=== PATIENT | female | born 1960 | race African-American/Black ===

== ENCOUNTER 2020-06-04 16:03 | Emergency (ER) | payer MEDICAID, OTHER ==
[2020-06-04] MEDS ORDERED: HYDROCODONE/ACETAMINOPHEN 5-325 MG TABLET PO ONE (16:36)
--- NOTE | 2020-06-04 16:37 | ER Document Report ---
ED Medical Screen (RME) - General Chief Complaint: Abdominal Pain Stated Complaint: LOWER RIGHT ABDOMEN PAIN, LOW BACK PAIN Time Seen by Provider: 06/04/20 16:29 Primary Care Provider: EDWARD JEFFREY MD [Primary Care Provider] - Follow up as needed Notes: Patient presents complaining of right flank pain that radiates around to right side of abdomen for the past 3 weeks. Patient reports urinary frequency. Patient denies any fever. Patient denies any nausea vomiting or diarrhea. Patient does have a history of previous appendectomy I have greeted and performed a rapid initial assessment of this patient. A comprehensive ED assessment and evaluation of the patient, analysis of test results and completion of the medical decision making process will be conducted by additional ED providers. - Related Data Allergies/Adverse Reactions: Penicillins Allergy (Verified 06/04/20 16:25) Sulfa (Sulfonamide Antibiotics) Allergy (Verified 06/04/20 16:25) Physical Exam - Vital signs Vitals: Temp Pulse Resp BP Pulse Ox 99.0 F 87 18 138/88 H 99 06/04/20 16:19 06/04/20 16:19 06/04/20 16:19 06/04/20 16:19 06/04/20 16:19 - Abdominal Tenderness: Tender - Right side of abdomen, exam limited with patient in chair Course - Vital Signs Vital signs: Temp Pulse Resp BP Pulse Ox 99.0 F 87 18 138/88 H 99 06/04/20 16:19 06/04/20 16:19 06/04/20 16:19 06/04/20 16:19 06/04/20 16:19 Doctor's Discharge - Discharge Referrals: EDWRAD JEFFREY MD [Primary Care Provider] - Follow up as needed
--- NOTE | 2020-06-04 17:27 | RADIOLOGY REPORT (SQ) ---
EXAM DESCRIPTION: CT ABD/PELVIS NO ORAL OR IV IMAGES COMPLETED DATE/TIME: 06/04/2020 3:53 pm REASON FOR STUDY: R flank, RLQ pain. Prior appendectomy. History of kidney stones. COMPARISON: None. TECHNIQUE: CT scan of the abdomen and pelvis performed without intravenous or oral contrast. Images reviewed with lung, soft tissue, and bone windows. Reconstructed coronal and sagittal MPR images revi ewed. All images stored on PACS. All CT scanners at this facility use dose modulation, iterative reconstruction, and/or weight based d osing when appropriate to reduce radiation dose to as low as reasonably achievable (ALARA). [facility]: Dose Right [facility]: CareDose [facility]: Dose Right [facility]: Teradose 4D [facility]: [employer] RADIATION DOSE: CT Rad equipment meets quality standard of care and radiation dose reduction techniq ues were employed. CTDIvol: 8.8 mGy. DLP: 442 mGy-cm.mGy. LIMITATIONS: None. FINDINGS: LOWER CHEST: No significant findings. No nodules or infiltrates. NON-CONTRASTED LIVER, SPLEEN, ADRENALS: Evaluation limited by lack of IV contrast. No identified sign ificant masses. PANCREAS: No masses. No peripancreatic inflammatory changes. GALLBLADDER: No identified stones by CT criteria. No inflammatory changes to suggest cholecystitis. RIGHT KIDNEY AND URETER: No suspicious masses. Assessment limited by lack of IV contrast. No signif icant calcifications. No hydronephrosis or hydroureter. LEFT KIDNEY AND URETER: No suspicious masses. Assessment limited by lack of IV contrast. No signifi cant calcifications. No hydronephrosis or hydroureter. AORTA AND RETROPERITONEUM: No aneurysm. No retroperitoneal masses or adenopathy. BOWEL AND PERITONEAL CAVITY: No obvious masses or inflammatory changes. No free fluid. APPENDIX: Normal. PELVIS, BLADDER, AND ABDOMINAL WALL:No abnormal masses. No free fluid. Bladder normal. BONES: No significant findings. OTHER: No other significant finding. IMPRESSION: NO SIGNIFICANT OR ACUTE PROCESS IN THE ABDOMEN OR PELVIS. No renal or ureteral calculi or hydronephrosis. Status post appendectomy. COMMENT: Quality ID # [id number]: Final reports with documentation of one or more dose reduction techniques (e.g., Automated exposure control, adjustment of the mA and/or kV according to patient size, use of iterative reconstruction technique) TECHNICAL DOCUMENTATION: JOB ID: [id number] 2010 [employer]- All Rights Reserved Reading location - IP/workstation name: [id number]
[2020-06-04 17:38] LABS: ALBUMIN 4.4 g/dL (3.5-5.0); ALKALINE PHOSPHATASE 80 U/L (38-126); ANION GAP 6 (5-19); ASPARTATE AMINO TRANSFERASE 22 U/L (14-36); BILIRUBIN,DIRECT 0.1 mg/dL (0.0-0.4); BILIRUBIN,TOTAL 0.3 mg/dL (0.2-1.3); BLOOD UREA NITROGEN 12 mg/dL (7-20); CALCIUM 9.8 mg/dL (8.4-10.2); CARBON DIOXIDE 30 mmol/L (22-30); CHLORIDE 104 mmol/L (98-107); GLUCOSE 93 mg/dL (75-110); POTASSIUM 4.3 mmol/L (3.6-5.0); TOTAL PROTEIN 7.2 g/dL (6.3-8.2)
[2020-06-04 17:41] LABS: HEMATOCRIT 38.3 % (36.0-47.0); HEMOGLOBIN 12.7 g/dL (12.0-15.5); MEAN CORPUSCULAR HEMOGLOBIN 27.2 pg (27.0-33.4); MEAN CORPUSCULAR HGB CONC 33.2 g/dL (32.0-36.0); MEAN CORPUSCULAR VOLUME 82 fl (80-97); PLATELET COUNT 264 10^3/uL (150-450); RED BLOOD COUNT 4.67 10^6/uL (3.72-5.28); WHITE BLOOD COUNT 8.4 10^3/uL (4.0-10.5)
[2020-06-04 17:56] LABS: ABSOLUTE MONOCYTES # (MANUAL) 0.2 10^3/uL (0.1-1.4); ANISOCYTOSIS SLIGHT; BASOPHILS % (MANUAL) 0 % (0-2); EOSINOPHILS % (MANUAL) 3 % (0-6); LYMPHOCYTES % (MANUAL) 48 % (13-45); MONOCYTES % (MANUAL) 2 % (3-13); POIKILOCYTOSIS SLIGHT; SEGMENTED NEUTROPHILS % (MAN) 36 % (42-78); TOTAL CELLS COUNTED 100
[2020-06-04 17:57] LABS: PLATELET COMMENT ADEQUATE; TARGET CELLS SLIGHT
[2020-06-04 18:33] LABS: APPEARANCE,URINE SLIGHTLY-CLOUDY; BILIRUBIN,URINE NEGATIVE (NEGATIVE); COLOR,URINE YELLOW; GLUCOSE, URINE NEGATIVE (NEGATIVE); KETONES,URINE NEGATIVE (NEGATIVE); LEUKOCYTE ESTERASE,URINE NEGATIVE (NEGATIVE); NITRITE,URINE NEGATIVE (NEGATIVE); PROTEIN,URINE NEGATIVE (NEGATIVE); UROBILINOGEN,URINE NEGATIVE mg/dL (<2.0)
[2020-06-04] MEDS ORDERED: KETOROLAC TROMETHAMINE INJ/PF 30 MG/1 ML SDV IV ONE (21:01)
[2020-06-04 21:14] LABS: APPEARANCE,URINE CLEAR; BILIRUBIN,URINE NEGATIVE (NEGATIVE); COLOR,URINE YELLOW; GLUCOSE, URINE NEGATIVE (NEGATIVE); KETONES,URINE NEGATIVE (NEGATIVE); PROTEIN,URINE NEGATIVE (NEGATIVE); URINE SPECIFIC GRAVITY 1.015; UROBILINOGEN,URINE NEGATIVE mg/dL (<2.0)
--- NOTE | 2020-06-04 22:00 | ER Document Report ---
Entered by MARGOTH SIMPSON SCRIBE 06/04/202101 Acting as scribe for:INDIANA REYES IV, MD ED GI/ - General Chief Complaint: Abdominal Pain Stated Complaint: LOWER RIGHT ABDOMEN PAIN, LOW BACK PAIN Time Seen by Provider: 06/04/20 16:29 Primary Care Provider: EDWARD JEFFREY MD [NO LOCAL MD] - Follow up as needed Mode of Arrival: Ambulatory Information source: Patient Notes: This 59-year-old female visiting the area from [place] with a history of kidney stones and chronic back pain presents to the emergency department today with complaints of a 2-month history of right low back pain. Patient states for the last 2 days the pain radiated around to her right lower quadrant and she was concerned that it could be a kidney stone again. Patient reports her pain is exacerbated with sitting up straight and is relieved by sitting in a hot bathtub or supine positioning. Patient is requesting an abdominal ultrasound, me ntioning that she was diagnosed with cervical cancer in her 20s and she wants to make sure this not related to that. She also mentions some urinary urgency without dysuria. - Related Data Allergies/Adverse Reactions: Penicillins Allergy (Verified 06/04/20 16:25) Sulfa (Sulfonamide Antibiotics) Allergy (Verified 06/04/20 16:25) Past Medical History - General Information source: Patient - Social History Smoking Status: Current Every Day Smoker Cigarette use (# per day): Yes Frequency of alcohol use: None Drug Abuse: None Lives with: Family Family History: Reviewed & Not Pertinent Renal/ Medical History: Reports: Hx Kidney Stones Malignancy Medical History: Reports: Hx Cervical Cancer Past Surgical History: Reports: Hx Appendectomy, Hx Orthopedic Surgery - right knee Review of Systems - Review of Systems Constitutional: No symptoms reported EENT: No symptoms reported Cardiovascular: No symptoms reported Respiratory: No symptoms reported Gastrointestinal: See HPI, Abdominal pain Genitourinary: See HPI, Urgency. denies: Burning Female Genitourinary: No symptoms reported Musculoskeletal: See HPI, Back pain Skin: No symptoms reported Hematologic/Lymphatic: No symptoms reported Neurological/Psychological: No symptoms reported -: Yes All other systems reviewed and negative Physical Exam - Vital signs Vitals: Temp Pulse Resp BP Pulse Ox 99.0 F 87 18 138/88 H 99 06/04/20 16:19 06/04/20 16:19 06/04/20 16:19 06/04/20 16:19 06/04/20 16:19 - Notes Notes: Physical Exam: General: Alert, appears well. HEENT: Normocephalic. Atraumatic. PERRL. Extraocular movements intact. Oropharynx clear. Neck: Supple. Non-tender. Respiratory: No respiratory distress. Clear and equal breath sounds bilaterally. Cardiovascular: Regular rate and rhythm. Abdominal: Normal Inspection. Non-tender. No distension. Normal Bowel Sounds. Back: No CVA tenderness to percussion. Right low back paraspinal tenderness to palpation. Positive straight leg raise on the right at 60. No gross abnormalities. Extremities: Moves all four extremities. Upper extremities: Normal inspection. Normal ROM. Lower extremities: Normal inspection. No edema. Normal ROM. Neurological: Normal cognition. AAOx4. Normal speech. Psychological: Normal affect. Normal Mood. Skin: Warm. Dry. Normal color. Course - Re-evaluation Re-evalutation: 06/05/20 00:21 Differential diagnosis: Kidney stone, pyelonephritis, urinary tract infection, uterine fibroids, abdominal wall muscle strain, hernia, sciatica MDM: The etiology of the patient's symptoms remains unknown after a thorough work-up including lab work repeat urinalysis, CT abdomen pelvis and ultrasound. Patient did mention that the last time she had an issue with a fibroid it was not visualized on ultrasound and it was only after she had funduscopically that it was discovered she had a uterine fibroid. Patient states she did get significant pain relief with Toradol. I think the most likely etiology at this point is some type of musculoskeletal pain as it seems to be worse with changes in position and there are no remarkable findings on the ultrasound or CAT scan. Plan at this point will be to discharge patient with prescription for Toradol. I am going to give her a one-time dose of Solu-Medrol in case this is some type of atypical presentation of sciatica given she had a positive right straight leg raise test. Patient was counseled about watching for signs and symptoms suggesting that she is worsening, such as nausea, vomiting, change in bowel habits, pain radiating down the side of the back of her leg, fever. Results of ED MSE discussed with patient. All questions were answered prior to discharge. Emergency signs and symptoms, reasons to return to the emergency department discussed with patient. - Vital Signs Vital signs: Temp Pulse Resp BP Pulse Ox 97.9 F 80 14 149/94 H 99 06/04/20 20:30 06/04/20 20:30 06/04/20 20:30 06/04/20 20:30 06/04/20 20:30 - Laboratory Results Result Diagrams: 06/04/20 17:00 06/04/20 17:00 Laboratory Results Interpreted: 06/04/20 06/04/20 17:00 17:00 Seg Neuts % (Manual) 36 L Lymphocytes % (Manual) 48 H Monocytes % (Manual) 2 L Abs Lymphs (Manual) 5.0 H Urine Ascorbic Acid 40 H Critical Laboratory Results Reviewed: No Critical Results Attending or Supervising Physician who Reviewed Labs: INDIANA REYES IV - Radiology Results Critical Radiology Results Reviewed: No Critical Results Attending or Supervising Physician who Reviewed Radiology: INDIANA REYES IV Discharge - Discharge Clinical Impression: Right flank pain Abdominal pain Qualifiers: Abdominal location: unspecified location Qualified Code(s): R10.9 - Unspecified abdominal pain Condition: Stable Disposition: HOME, SELF-CARE Additional Instructions: Return to the Emergency Department without delay if any worse. HOME CARE INSTRUCTIONS & INFORMATION: Thank you for choosing us for your medical needs. We hope you're satisfied with the care you received. After you leave, you must properly care for your problem and, at the same time, observe its progress. Any condition can change. Some illnesses can change rapidly over hours or days. If your condition worsens, return to the Emergency Department or see your physician promptly. ABOUT YOUR X-RAYS AND EKG'S: If you had an EKG or X-rays taken, they have been read by the Emergency Physician. The X-rays and EKG's will also be read by a Radiologist or Financial Services Professional within 24 hours. If discrepancies are noted, you will be notified by telephone. Please be certain the ED has a correct telephone number & address where you can be reached. Also, realize that some fractures or abnormalities do not show up on initial X-rays. If your symptoms continue, see your physician. ABOUT YOUR LABORATORY TEST: If you had laboratory tests, the results have been reviewed by the Emergency Physician. Some test results (for example cultures) may not be available for several days. You will be contacted if any test result shows you need additional treatment. Please be certain the ED has a correct telephone number and address where you can be reached. ABOUT YOUR MEDICATIONS: You will receive instructions on how to take your medicine on the prescription label you receive. Additional information may be provided by the Pharmacy. If you have questions afterwards, call the ED for clarification or further instructions. Some prescribed medications may cause drowsiness. Do not perform tasks such as driving a car or operating machinery without consulting your Pharmacist. If you feel you need a refill of pain medication, your condition will need re-evaluation. Please do not call for a refill of any medication. ABOUT YOUR SIGNATURE: Signature of this document acknowledges to followin. Understanding that you received emergency treatment and that you may be released before al medical problems are known or treated. Please be certain the ED has a correct phone number & address where you can be reached. 2. Acknowledgement that you will arrange for follow-up care as recommended. 3. Authorization for the Emergency Physician to provide information to your follow-up Physician in order to maximize your care. AT ANY TIME, IF YOUR SYMPTOMS CHANGE SIGNIFICANTLY OR WORSEN OR YOU DEVELOP NEW SYMPTOMS, RETURN TO THE EMERGENCY DEPARTMENT IMMEDIATELY FOR RE-EVALUATION. OUR GOAL IS TO PROVIDE EXCELLENT MEDICAL CARE! WE HOPE THAT WE HAVE MET YOUR EXPECTATIONS DURING YOUR EMERGENCY DEPARTMENT VISIT AND THAT YOU FEEL YOU HAVE RECEIVED EXCELLENT CARE! Prescriptions: Ketorolac Tromethamine [Toradol 10 mg Tablet] 10 mg PO Q6HP PRN #20 tablet PRN Reason: Pain Referrals: EDWARD JEFFREY MD [NO LOCAL MD] - Follow up as needed MICHAEL NOEL MD [ACTIVE PROVISIONAL STAFF] - 06/07/20 (Call to schedule follow-up appointment) I personally performed the services described in the documentation, reviewed and edited the documentation which was dictated to the scribe in my presence, and it accurately records my words and actions.
--- NOTE | 2020-06-04 22:11 | RADIOLOGY REPORT (SQ) ---
EXAM DESCRIPTION: US PELVIS LIMITED COMPLETED DATE/TME: 06/04/2020 21:36 CLINICAL HISTORY: 59 years, Female, pelvic pain, h/o fibroids and cervical ca COMPARISON: CT 06/04/2020 TECHNIQUE: Emergent pelvic ultrasound LIMITATIONS: None. FINDINGS: Atrophic appearance to the uterus measuring 4.0 x 3.0 x 5.0 cm. The endometrium measures 1.8 mm in thickness. Myometrium is homogenous. Right ovary measures 3 x 3 x 2 cm, the left 2 by 2 x 2 centimeters. Arterial and venous flow to both ovaries. No adnexal cyst or mass. No free fluid IMPRESSION: Unremarkable pelvic ultrasound copyright 2010 [employer]- All Rights Reserved
[2020-06-05] MEDS ORDERED: METHYLPREDNISOLONE INJ 125 MG/2 ML SDV IV ONE (00:21)
[2020-06-05 00:34] VITALS: BP 157/93
== END 2020-06-05 00:42 | disposition home or self-care (01) ==
LOC: ER 16:03
DX: R10.9 Unspecified abdominal pain (principal); R10.31 Right lower quadrant pain; M54.5 Low back pain; R39.15 Urgency of urination; F17.210 Nicotine dependence, cigarettes, uncomplicated; Z90.49 Acquired absence of other specified parts of digestive tract; Z87.442 Personal history of urinary calculi; Z87.42 Personal history of other diseases of the female genital tract; Z88.0 Allergy status to penicillin; Z88.2 Allergy status to sulfonamides
CPT/HCPCS: 99285; 96374; 96375; 36415; 83690; 85025; 80053; 81001; 76857; 74176; J2930; J1885